=== PATIENT | female | born 1940 | race Caucasian/White ===

== ENCOUNTER 2018-10-12 16:54 | Inpatient (IN) | payer MEDICARE, OTHER ==
[~2018-10-12] VITALS: Ht 152.4 cm; Wt 57.6 kg
[2018-10-12] MEDS ORDERED: QUET25TA PO (17:35)
[2018-10-12] MEDS ORDERED: LOSA100T31 PO (17:35)
[2018-10-12] MEDS ORDERED: FERR325T6 PO (17:35)
[2018-10-12] MEDS ORDERED: LABE200T5 PO (17:35)
[2018-10-12] MEDS ORDERED: ALEN70TA6 PO (17:35)
[2018-10-12] MEDS ORDERED: CHOL200026 PO (17:35)
[2018-10-12] MEDS ORDERED: SENN-168 PO (17:35)
[2018-10-12] MEDS ORDERED: THIA100T88 PO (17:35)
[2018-10-12] MEDS ORDERED: FURO-152 PO (17:35)
[2018-10-12] MEDS ORDERED: ATOR80TA PO (17:35)
[2018-10-12] MEDS ORDERED: DOCU100T9 PO (17:35)
[2018-10-12] MEDS ORDERED: ASPI-605 PO (17:35)
--- NOTE | 2018-10-12 17:37 | NUR ---
PT IS IN ROOM #2A. DR DOYLE EVALUATED THE PT.
[2018-10-12 17:39] LABS: BASOPHILS % (AUTO) 0.5 % (0.0-2.0); HEMOGLOBIN 11.9 g/dL (10.9-14.3); LYMPHOCYTES # (AUTO) 1.2 K/uL (20.0-40.0); LYMPHOCYTES % (AUTO) 16.9 % (20.5-51.5); MEAN CORPUSCULAR HEMOGLOBIN 29.9 uug (24.7-32.8); MEAN CORPUSCULAR HGB CONC 32 g/dL (32.3-35.6); MEAN CORPUSCULAR VOLUME 92.5 fL (75.5-95.3); MONOCYTES # (AUTO) 0.4 K/uL (2.0-10.0); MONOCYTES % (AUTO) 6.5 % (0.0-11.0); NEUTROPHILS # (AUTO) 5.2 K/uL (1.8-8.9); NEUTROPHILS % (AUTO) 76.1 % (38.5-71.5); PLATELET COUNT (AUTO) 180 K/uL (179-408); RED BLOOD CELL COUNT(AUTO) 3.99 MIL/uL (3.63-4.92); WHITE BLOOD COUNT (AUTO) 6.8 K/uL (3.8-11.8)
[2018-10-12 17:47] LABS: CARBON DIOXIDE 26 mmol/L (21-32); CHLORIDE 106 mmol/L (98-107); CREATININE 1.2 mg/dL (0.6-1.3); GLUCOSE 121 mg/dL (74-106); POTASSIUM 3.5 mmol/L (3.5-5.1); UREA NITROGEN, BLOOD 23 mg/dL (7-18)
[2018-10-12 17:50] LABS: ETHANOL 5 MG/DL (0-0)
[2018-10-12 18:00] LABS: ALANINE AMINOTRANSFERASE 23 U/L (14-59); ALKALINE PHOSPHATASE 85 U/L (50-136); ASPARTATE AMINOTRANSFERASE 67 U/L (15-37); BILIRUBIN,DIRECT 0.3 mg/dL (0.0-0.2); BILIRUBIN,TOTAL 1.2 mg/dL (0.2-1.0); LIPASE 40 U/L (73-393); TOTAL PROTEIN, SERUM 8.2 g/dL (6.4-8.2)
[2018-10-12 18:01] LABS: ACETAMINOPHEN < 2.0 ug/mL (10-30)
[2018-10-12] MEDS ORDERED: IV NORMAL SALINE 500 ML BAG IV ONE (18:15)
--- NOTE | 2018-10-12 19:02 | NUR ---
REPORT GIVEN TO EMERGENCY DEPARTMENTMUSICAL INSTRUMENT MAKER.
--- NOTE | 2018-10-12 19:51 | NUR ---
Pt. admitted to Med/Surg , under care of Dr. Nestor Field. Diagnosis: Generalized Weakness Belongs List completed. MRSA swab done.
[2018-10-12 20:48] VITALS: BP 174/75
--- NOTE | 2018-10-12 21:00 | NUR ---
Admitted 78 y/o F with history of Dementia and HLD to Tele/MS floor for Generalized weakness. Arrived in unit at 2005. Pt is awake, nonverbal. On RA, no s/s of resp distress noted. Per report, pt is from board and care (unable to locate contact info at this time) where she was having poor PO intake x3 days and syncopal episode. Pt unable to follow directions. Bedbound and incontinent. Head to toe assessment done. On tele monitoring, sinus rhythm at 64bpm. No skin issues noted. RFA 18g saline lock in place and patent, no s/s of complications noted. No s/s of pain or discomfort at this time. Attempted to contact Gurwinder Pop at [phone] regarding admission, number goes to fax machine. Oriented patient to unit, staff, room, care board, and call light. Unable to comprehend, confused. All safety precautions in place. Will cont to monitor.
[2018-10-12] MEDS ORDERED: HYDROCODONE/APAP 5-325MG TABLET PO PRN (21:15)
[2018-10-12] MEDS ORDERED: ACETAMINOPHEN 325 MG TABLET PO PRN (21:15)
[2018-10-12] MEDS ORDERED: hydrALAZINE HCL 25 MG TABLET PO PRN (21:15)
[2018-10-12] MEDS ORDERED: ONDANSETRON 4 MG/2 ML VIAL IV PRN (21:15)
[2018-10-12] MEDS ORDERED: TEMAZEPAM 15 MG CAPSULE PO PRN (21:15)
[2018-10-12] MEDS: QUETIAPINE FUMARATE 25 MG TABLET PO SCH (21:47)
[2018-10-12] MEDS: LABETALOL HCL 200 MG TABLET PO SCH (21:47)
[2018-10-12] MEDS: DOCUSATE SODIUM 100 MG CAPSULE PO SCH (21:50)
[2018-10-13] VITALS (9 sets, daily range): BP systolic 139–202; BP diastolic 68–93
--- NOTE | 2018-10-13 05:55 | NUR ---
Pt slept well throughout shift. No s/s of acute distress noted. Sinus rhythm on the tele at 64bpm, no ectopy. Administered Hydralazine PRN for SBP >150 as ordered. All safety precautions in place. Will cont to monitor.
[2018-10-13 06:33] LABS: BASOPHILS % (AUTO) 0.2 % (0.0-2.0); EOSINOPHILS % (AUTO) 0.1 % (0.0-7.0); HEMATOCRIT 36.1 % (31.2-41.9); HEMOGLOBIN 11.7 g/dL (10.9-14.3); LYMPHOCYTES # (AUTO) 0.9 K/uL (20.0-40.0); LYMPHOCYTES % (AUTO) 14.4 % (20.5-51.5); MEAN CORPUSCULAR HEMOGLOBIN 30.1 uug (24.7-32.8); MEAN CORPUSCULAR HGB CONC 32 g/dL (32.3-35.6); MEAN CORPUSCULAR VOLUME 92.9 fL (75.5-95.3); MONOCYTES # (AUTO) 0.3 K/uL (2.0-10.0); MONOCYTES % (AUTO) 4.6 % (0.0-11.0); NEUTROPHILS # (AUTO) 4.9 K/uL (1.8-8.9); NEUTROPHILS % (AUTO) 80.7 % (38.5-71.5); PLATELET COUNT (AUTO) 179 K/uL (179-408); RED BLOOD CELL COUNT(AUTO) 3.88 MIL/uL (3.63-4.92); WHITE BLOOD COUNT (AUTO) 6.1 K/uL (3.8-11.8)
[2018-10-13] MEDS ORDERED: PANTOPRAZOLE SODIUM 40 MG TABLET.DR PO SCH (07:00)
[2018-10-13 07:05] LABS: THYROID STIMULATING HORMONE 1.024 mIU/mL (0.358-3.740)
[2018-10-13 07:26] LABS: ALANINE AMINOTRANSFERASE 27 U/L (14-59); ALKALINE PHOSPHATASE 76 U/L (50-136); ASPARTATE AMINOTRANSFERASE 98 U/L (15-37); BILIRUBIN,TOTAL 1.2 mg/dL (0.2-1.0); CARBON DIOXIDE 23 mmol/L (21-32); CHLORIDE 109 mmol/L (98-107); CHOLESTEROL 116 mg/dL (<200); GLUCOSE 130 mg/dL (74-106); HDL CHOLESTEROL 50 mg/dL (40-60); MAGNESIUM 1.5 mg/dL (1.8-2.4); PHOSPHOROUS 3.6 mg/dL (2.5-4.9); POTASSIUM 3.4 mmol/L (3.5-5.1); TOTAL PROTEIN, SERUM 7.3 g/dL (6.4-8.2); TRIGLYCERIDES 55 MG/DL (30-150); UREA NITROGEN, BLOOD 22 mg/dL (7-18)
--- NOTE | 2018-10-13 07:57 | NUR ---
patient with sbp of 202/85 and HR 60-65 under KELSEY monitoring. A call to attending physician for orders since patient just medicated for SBP above 150's at 0546 this morning. Awaiting call back. Addendum: 10/13/18 at 0910 by DYLAN LEARY RN A call back from attending Dr. Baez orders to continue monitoring received and will follow up.
[2018-10-13] MEDS: DOCUSATE SODIUM 100 MG CAPSULE PO SCH ×2 (08:07→16:27)
[2018-10-13] MEDS: SENNOSIDES 1 TABLET PO SCH ×2 (08:07→16:27)
[2018-10-13] MEDS: QUETIAPINE FUMARATE 25 MG TABLET PO SCH ×2 (08:07→20:35)
[2018-10-13] MEDS: LABETALOL HCL 200 MG TABLET PO SCH (08:08)
[2018-10-13] MEDS ORDERED: FERROUS GLUCONATE 324 MG TABLET PO SCH (09:00)
[2018-10-13] MEDS ORDERED: LOSARTAN POTASSIUM 50 MG TABLET PO SCH (09:00)
[2018-10-13] MEDS ORDERED: ASPIRIN EC 81 MG TABLET.DR PO SCH (09:00)
[2018-10-13] MEDS ORDERED: CHOLECALCIFEROL 1,000 UNIT TABLET PO SCH (09:00)
[2018-10-13] MEDS ORDERED: THIAMINE HCL 100 MG TABLET PO SCH (09:00)
[2018-10-13] MEDS ORDERED: FUROSEMIDE 20 MG TABLET PO SCH (09:00)
--- NOTE | 2018-10-13 09:11 | NUR ---
patient with sbp in the 169/88 ( patient medicated with her daily doses of losartan and labetalol.) will continue to monitor as ordered.
[2018-10-13] MEDS ORDERED: MAGNESIUM OXIDE 400 MG TABLET PO ONE (09:30)
[2018-10-13] MEDS ORDERED: POTASSIUM CHLORIDE 20 MEQ TAB.PRT.SR PO ONE (09:30)
--- NOTE | 2018-10-13 11:12 | NUR ---
pt. with SBP of 198/68 with Hr of 86 attending called to be notified awaiting call back.
[2018-10-13] MEDS ORDERED: CLONIDINE-TTS 1 PATCH TD SCH ×2 (11:30→11:36)
--- NOTE | 2018-10-13 20:00 | NUR ---
Rec'd pt in bed awake, mostly nonverbal. On RA, sinus rhythm on tele at 93bpm. Episodes of hypertension during dayshift per report. Will continue to monitor for further episodes. Current BP: 139/93. No s/s of acute distress or pain noted. All safety precautions in place. Will cont to monitor.
[2018-10-13] MEDS ORDERED: ATORVASTATIN 20 MG TABLET PO SCH (21:00)
[2018-10-13] MEDS ORDERED: ATORVASTATIN 40 MG TABLET PO SCH (21:00)
[2018-10-13] MEDS ORDERED: LABETALOL HCL 200 MG TABLET PO SCH (21:00)
[2018-10-13] MEDS ORDERED: EPINEPHRINE 1:10,000 1 MG/10 ML DISP.SYRIN MC ONE (23:09)
--- NOTE | 2018-10-13 23:30 | NUR ---
@2246 found patient unresponsive. Called code blue. CPR initiated and bagged patient. Dr. Rodgers made aware. Dr. Cabrera intubated patient. Epi given x2. Ineffective. No shocks given due to no heartbeat sensed. Pronounced by Dr. Cabrera, time of 230. Post mortem care provided. [facility] [employer] notified c/o Corrina Ref # [id number]. Attempted to notify Gurwinder Pop listed on facesheet at [phone], however it is a fax machine. Charge nurse called SNF to get a different number, per SNF staff, no other number recorded. @[id number] Rodgers patient at 230. Per Mitch he will notify Dr. Baez in am. Called [facility] to speak with Dr. Baez, Dr. Baez not carton forming machine tender. Addendum: 10/14/18 at 0450 by SUDHIR MINAYA RN @7 found patient unresponsive, skin warm and yellow in color with vomitus. Called code blue. CPR initiated.
[2018-10-17] MEDS ORDERED: ALENDRONATE SODIUM 70 MG TABLET PO SCH (06:30)
== END 2018-10-13 23:10 | disposition expired ==
LOC: ER 16:54 → MEDSURG3 18:55 → TELE3 23:06
PROVIDERS: ADMIT Internal Medicine; ATTEND Internal Medicine
PROC: 5A12012 Performance of Cardiac Output, Single, Manual (ICD-10-PCS; principal; 2018-10-13)
PROC: 0BH17EZ Insertion of Endotracheal Airway into Trachea, Via Natural or Artificial Opening (ICD-10-PCS; 2018-10-13)
DX: I16.0 Hypertensive urgency (principal); I21.A1 Myocardial infarction type 2; N17.0 Acute kidney failure with tubular necrosis; G93.40 Encephalopathy, unspecified; R62.7 Adult failure to thrive; R79.89 Other specified abnormal findings of blood chemistry; E86.0 Dehydration; E78.5 Hyperlipidemia, unspecified; I44.4 Left anterior fascicular block; G30.9 Alzheimer's disease, unspecified; F02.80 Dementia in other diseases classified elsewhere, unspecified severity, without behavioral disturbance, psychotic disturbance, mood disturbance, and anxiety; I70.0 Atherosclerosis of aorta; I11.9 Hypertensive heart disease without heart failure; R74.0 Nonspecific elevation of levels of transaminase and lactic acid dehydrogenase [LDH]; R73.9 Hyperglycemia, unspecified; R55 Syncope and collapse; Z79.899 Other long term (current) drug therapy
CPT/HCPCS: 36415; 70030-TC; 71045; 83690; 83735; 84100; 84443; 85025; 85730; 93005; 97110; 97530; A4217; A4663; G0378; G0480; G0480-TC; J0171; J7030